=== PATIENT | female | born 1975 | race Caucasian/White ===

== ENCOUNTER 2023-09-11 10:11 | Observation (INO) | payer BC ==
[2023-09-11] MEDS ORDERED: SODIUM CHLORIDE 1,000 ML IV SCH (10:30)
[2023-09-11] MEDS ORDERED: predniSONE 20 MG TABLET (UD) PO ONE (11:01)
[2023-09-11] MEDS ORDERED: valACYclovir HCL 500 MG TABLET (FP) PO ONE (11:01)
[2023-09-11 11:04] LABS: BASO % 0.4 % (0-2.0); EOS % 1.2 % (0-4.5); HEMATOCRIT 36.5 % (32.4-45.2); HEMOGLOBIN 12.6 GM/dL (10.7-15.3); LYMPH % 24.7 % (8-40); MCH 30.8 pg (25.7-33.7); MCHC 34.5 g/dl (32.0-36.0); MEAN CELL VOLUME 89.3 fl (80-96); MEAN PLT VOLUME 8.6 fl (7.5-11.1); MONO % 5.6 % (3.8-10.2); NEUT % 68.1 % (42.8-82.8); PLATELET COUNT 307 10^3/uL (134-434); RBC 4.09 M/mm3 (3.60-5.2); RDW 12.9 % (11.6-15.6)
[2023-09-11] MEDS ORDERED: valACYclovir HCL 500 MG TABLET (FP) ONE (11:05)
[2023-09-11] MEDS ORDERED: predniSONE 20 MG TABLET (UD) ONE (11:05)
[2023-09-11 11:17] LABS: CHOLESTEROL 189 mg/dL (50-200)
[2023-09-11 11:18] LABS: LDL CHOLESTEROL (ONLY SJRH) 101 mg/dL (5-100)
[2023-09-11] MEDS ORDERED: ACETAMINOPHEN 325 MG TABLET (FP) PO PRN (11:19)
[2023-09-11 11:20] LABS: ACTIVATED PTT 25.5 SECONDS (25.2-36.5); HDL CHOLESTEROL 57 mg/dL (40-60); INR 1.08 (0.83-1.09); PROTHROMBIN TIME (PATIENT) 12.5 SEC (9.7-13.0)
[2023-09-11 11:21] LABS: POTASSIUM 4.7 mmol/L (3.5-5.1)
[2023-09-11 11:23] LABS: CALCIUM 9.5 mg/dL (8.5-10.1)
[2023-09-11 11:24] LABS: ALBUMIN 4.1 g/dl (3.4-5.0); BLOOD UREA NITROGEN 18.2 mg/dL (7-18)
[2023-09-11 11:28] LABS: BILIRUBIN,TOTAL 0.4 mg/dL (0.2-1); TOT PROT 7.7 g/dl (6.4-8.2)
[2023-09-11] MEDS ORDERED: ASPIRIN 325 MG TABLET PO ONE (11:29)
[2023-09-11 11:59] VITALS: TEMP 98.5; BMI 21.2
[2023-09-11] MEDS ORDERED: ASPIRIN 81 MG CHEWABLE TABLETS ONE (12:37)
[2023-09-11 14:58] VITALS: BP 138/78; PULSE 85; RESP 16
[2023-09-11 15:24] LABS: URINE APPEARANCE CLEAR; URINE BILIRUBIN NEGATIVE (NEGATIVE); URINE COLOR YELLOW; URINE GLUCOSE (UA) NEGATIVE (NEGATIVE); URINE KETONE NEGATIVE (NEGATIVE)
[2023-09-11 15:25] LABS: URINE LEUK ESTERASE NEGATIVE (NEGATIVE); URINE NITRITE NEGATIVE (NEGATIVE); URINE PROTEIN NEGATIVE (NEGATIVE); URINE UROBILINOGEN 0.2 mg/dL (0.2-1.0)
[2023-09-11] MEDS ORDERED: valACYclovir HCL 500 MG TABLET (FP) PO SCH (18:00)
== END 2023-09-11 15:10 | disposition home or self-care (01) ==
LOC: JER 10:11 → JERBED 10:59
PROVIDERS: ADMIT Family Medicine; ATTEND Family Medicine
PROC: 3E0337Z Introduction of Electrolytic and Water Balance Substance into Peripheral Vein, Percutaneous Approach (ICD-10-PCS; principal; 2023-09-11)
DX: R29.810 Facial weakness (principal); I34.1 Nonrheumatic mitral (valve) prolapse; M50.80 Other cervical disc disorders, unspecified cervical region
CPT/HCPCS: 36415; 70450-TC; 70496-TC; 70498-TC; 70551-TC; 71045-TC-FY; 80053; 80061; 81003; 82550; 82962; 83036; 84484; 84703; 85025; 85610; 85730; 86850; 86900; 86901; 99285-25; G0378

== ENCOUNTER 2024-04-14 04:47 | Day surgery (SDC) | payer BC ==
[2024-04-06 10:28] VITALS: BMI 22.1
[2024-04-14 06:32] VITALS: RESP 20
[2024-04-14] MEDS ORDERED: LIDOCAINE 1%/EPI 1:100000 (20 ML MULTI DOSE VIAL) ONE (07:37)
[2024-04-14] MEDS ORDERED: ACETAMINOPHEN INJECTION 100 ML IVPB ONE (07:52)
[2024-04-14] MEDS ORDERED: DEXMEDETOMIDINE HCL 200 MCG/2 ML IVPB ONE (07:53)
[2024-04-14] MEDS ORDERED: MIDAZOLAM HCL 2 MG/2 ML SINGLE DOSE VIAL ONE (07:58)
[2024-04-14] MEDS ORDERED: FENTANYL CITRATE/PF 50 MCG/ML VIAL ONE (07:58)
[2024-04-14] MEDS ORDERED: DEXAMETHASONE SOD PHOSPHATE 4 MG/1 ML VIAL ONE (08:06)
[2024-04-14] MEDS ORDERED: KETOROLAC TROMETHAMINE 30 MG/1 ML VIAL ONE (08:06)
[2024-04-14] MEDS ORDERED: ONDANSETRON 4 MG/2 ML VIAL ONE (08:06)
[2024-04-14] MEDS ORDERED: PROPOFOL 20 ML ONE (08:06)
[2024-04-14] MEDS ORDERED: ceFAZolin SODIUM 1 GM VIAL ONE (08:06)
[2024-04-14] MEDS ORDERED: METOCLOPRAMIDE HCL INJECTION 10 MG/2 ML VIAL ONE (08:06)
[2024-04-14] MEDS: ceFAZolin 2 GRAM PREMIX BAG IVPB ONE (08:09)
[2024-04-14] MEDS ORDERED: SUCCINYLCHOLINE CHLORIDE 200 MG/10 ML SYRINGE ONE (08:19)
[2024-04-14] MEDS ORDERED: BENZOIN/ALOE VERA/STORAX/TOLU 58 ML BOTTLE ONE (08:29)
[2024-04-14 09:09] VITALS: PULSE 68
[2024-04-14 10:10] VITALS: BP 110/70; TEMP 98
== END 2024-04-14 10:00 | disposition home or self-care (01) ==
LOC: JASU-SURG 04:47
PROVIDERS: ATTEND Surgery
PROC: 0JB90ZZ Excision of Buttock Subcutaneous Tissue and Fascia, Open Approach (ICD-10-PCS; principal; 2024-04-14 08:00)
DX: L72.3 Sebaceous cyst (principal)
CPT/HCPCS: 81025; 88304-TC; J0131